=== PATIENT | male | born 1995 | race Caucasian/White ===

== ENCOUNTER 2017-08-03 10:55 | Observation (INO) ==
--- NOTE | 2017-08-03 11:29 | Emergency Department Note ---
Disposition Clinical Impression: Depression Qualifiers: Depression Type: unspecified Qualified Code(s): F32.9 - Major depressive disorder, single episode, unspecified Disposition: Admitted As Inpatient Condition: Good Forms: ED Satisfaction Letter Time of Disposition: 14:10 Psych HPI - General Chief Complaint: ED Psychiatric Symptoms Stated Complaint: SI Time Seen by Provider: 08/03/17 11:13 Source: patient Nursing Notes Reviewed: Yes Vital Signs Reviewed: Yes - History of Present Illness HPI Narrative: Jean Kelsey is a 21 y/o M with a history of feeling depress and SI who presents today feeling very depressed. He states that he usually smokes marijuana when he is feeling depressed. However, he has stopped smoking marijuana for the past 2 days. Today he feels too depress to cope alone and would like to seek help. He denies any SI and HI currently. He admits he has an appointment with Michelle Lux, a psychiatrist, on 08/11/17. He denies any pain and has no other concerns. Pt complaint: feels depressed Duration: getting worse Associated symptoms: Denies: headache, shortness of breath, nausea, vomiting, syncope Traumatic symptoms: denies traumatic injury - Related Data Home Medications Medication Instructions Recorded Confirmed No Known Home Drugs 08/03/17 08/03/17 Allergies Allergy/AdvReac Type Severity Reaction Status Date / Time No Known Allergies Allergy Verified 08/03/17 11:08 Constitutional: Denies: fever, chills, weakness, weight change Eyes: Denies: eye pain, eye discharge, vision change ENT ED: Denies: ear pain, throat pain, dental pain, hearing loss, epistaxis, congestion, dysphagia Cardiovascular: Denies: chest pain, palpitations, dyspnea on exertion, edema, syncope Respiratory: Denies: cough, dyspnea, wheezes, hemoptysis, stridor Gastrointestinal: Denies: abdominal pain, nausea, vomiting, diarrhea, constipation, hematemesis, melena, hematochezia Genitourinary: Denies: urgency, dysuria, frequency, hematuria Musculoskeletal: Denies: back pain, neck pain, arthralgia, myalgia Integumentary: Denies: rash, abrasion, lesions Neurological: Denies: headache, weakness, numbness, paresthesias, confusion, abnormal gait, vertigo Psychiatric: Reports: depression. Denies: anxiety, suicidal thoughts, homicidal thoughts, auditory hallucinations, visual hallucinations Endocrine: Denies: fatigue Hematological/Lymphatic: Denies: easy bleeding, easy bruising Allergic/Immunologic: Denies: facial swelling, urticaria Past Medical History - Past Medical History Medical history: Reports: no medical history Psychiatric history: Reports: anxiety, depression - Social History Smoking Status: Current every day smoker Smokeless Tobacco Status: No Alcohol use: Reports: none, occasionally Drug use: Reports: marijuana, other Physical Exam - General Limitations: no limitations General appearance: alert - Head Head exam: atraumatic, normocephalic, normal inspection - Eye Eye exam: Present: normal appearance, PERRL, EOMI - Expanded Eye Exam Pupils: Left: reactive - ENT ENT exam: normal exam, normal oropharynx, mucous membranes moist - Expanded ENT Exam External ear exam: Present: normal external inspection Mouth exam: Present: normal external inspection Teeth exam: Present: normal inspection Throat exam: Present: normal inspection - Neck Neck exam: Present: normal inspection, full ROM, trachea midline - Chest Chest inspection: Present: normal inspection, symmetric chest wall rise - Respiratory Respiratory exam: Present: normal lung sounds bilaterally - Cardiovascular Cardiovascular exam: Present: regular rate, normal rhythm, normal heart sounds - Abdominal Exam Abdominal exam: Present: soft, Non-Tender. Absent: tenderness, distention, guarding, rebound, rigidity - Extremities Exam Extremities exam: Present: normal inspection, full ROM. Absent: tenderness, pedal edema - Expanded Upper Extremity Exam Shoulder exam: Present: normal inspection, full ROM Arm exam: Present: normal inspection, full ROM Elbow exam: Present: normal inspection, full ROM Forearm/Wrist exam: Present: normal inspection, full ROM Hand exam: Present: normal inspection, full ROM Vascular exam: Normal: capillary refill, radial pulse - Expanded Lower Extremity Exam Hip/Pelvis exam: Present: normal inspection, full ROM Upper leg exam: Present: normal inspection, full ROM Knee exam: Present: normal inspection, full ROM Lower leg exam: Present: normal inspection, full ROM Ankle exam: Present: normal inspection, full ROM Foot/toe exam: Present: normal inspection, full ROM Neurovascular/Tendon exam: Absent: motor deficit, sensory deficit, tendon deficit - Back Exam Back exam: Present: normal inspection, full ROM. Absent: tenderness - Neurological Exam Neurological exam: Present: alert, oriented X3 - Expanded Neurological Exam Patient oriented to: Present: person, place, time Coma Scale Eye Opening: Spontaneous Coma Scale Motor Response: Obeys Commands Coma Scale Verbal Response: Oriented Coma Scale Total: 15 - Psychiatric Psychiatric exam: Present: normal affect, depressed. Absent: agitated, manic, homicidal ideation, suicidal ideation - Skin Skin exam: Present: warm, dry, intact, normal color Course Course Narrative: Jean Kelsey is a 21 y/o M with a history of depression who presents today feeling very depressed. He states that he usually smokes marijuana when he is feeling depressed. However, he has stopped smoking marijuana for the past 2 days. He denies any SI or HI currently. He states that he is doing better now, but he admits he still feel very depressed. Patient is being admitted to Psych services. - Reevaluation(s) Reevaluation #1: Patient states that he is still depress but he denies any SI and HI Time: 14:07 Vital Signs Temperature 98.2 F 08/03/17 11:02 Pulse Rate 109 08/03/17 11:02 Respiratory Rate 18 08/03/17 11:02 Blood Pressure 120/81 08/03/17 11:02 O2 Sat by Pulse Oximetry 97 08/03/17 11:02 Temperature 98.2 F 08/03/17 11:02 Pulse Rate 107 08/03/17 11:34 Respiratory Rate 16 08/03/17 11:34 Blood Pressure 120/79 08/03/17 11:34 O2 Sat by Pulse Oximetry 97 08/03/17 11:34 Oxygen Delivery Oxygen Delivery Room Air Psych - [facility] Narrative Medical decision making narrative: Jean Kelsey is a 21 y/o M with a history of depression who presents today feeling very depressed. He states that he usually smokes marijuana when he is feeling depressed, but he has stopped smoking marijuana for the past 2 days. He denies any SI or HI. Patient has an appointment with a psychiatrist on 08/11/17 , but until then, the patient would like some help today. Patient is being admitted to Psych services today. - Lab Data Result diagrams: 08/03/17 11:35 08/03/17 11:35 Lab Results 08/03/17 08/03/17 08/03/17 Range/Units 11:34 11:34 11:35 WBC 7.8 (4.3-11.1) K/mcL RBC 5.34 (4.19-5.50) M/mcL Hgb 16.1 (12.9-16.9) g/dL Hct 47.7 (37.5-50.1) % MCV 89.3 (83.0-100.0) fL MCH 30.1 (28.0-33.3) pg MCHC 33.8 (31.6-35.5) g/dL RDW 13.3 (11.5-14.5) % Plt Count 334 (140-400) K/mcL MPV 9.7 (9.4-12.4) fL Immature Gran % 0.4 (0-4) % Seg Neutrophils % 69.7 % Lymphocytes % 22.1 % Monocytes % 7.0 % Eosinophils % 0.4 % Basophils % 0.4 % Neutrophils # 5.4 (1.6-8.9) K/mcL Lymphocytes # 1.7 (0.6-4.6) K/mcL Monocytes # 0.5 (0.0-1.3) K/mcL Eosinophils # 0.0 (0.0-0.6) K/mcL Basophils # 0.0 (0.0-0.2) K/mcL Sodium (136-145) mEq/L Potassium (3.5-4.5) mEq/L Chloride (98-109) mEq/L Carbon Dioxide (19-29) mEq/L BUN (8-26) mg/dL Creatinine (0.72-1.25) mg/dL Est GFR ( Amer) (> 60) Est GFR (Non-Af Amer) (> 60) BUN/Creatinine Ratio (6-26) Glucose (70-99) mg/dL Calculated Osmolality (280-300) Calcium (8.6-10.8) mg/dL Urine Color Dark Yellow (Yellow) Urine Clarity Clear (Clear) Urine pH 6.5 (5.0-8.0) pH Units Ur Specific [place] > 1.030 H (1.010-1.025) Urine Protein 30 H (Neg-Trace) mg/dL Urine Glucose (UA) Normal (Normal) mg/dL Urine Ketones Trace H (Negative) mg/dL Urine Blood Negative (Negative) Urine Nitrite Negative (Negative) Urine Bilirubin Small H (Negative) Urine Urobilinogen Normal (Normal) mg/dL Ur Leukocyte Esterase Negative (Negative) Urine Microscopic RBC 0-3 (0-3) per hpf Urine Microscopic WBC 0-3 (0-3) per hpf Ur Squamous Epith Cells Moderate H (None-Few) per lpf Urine Bacteria None Seen (None-Few) per hpf Hyaline Casts None Seen (None-Few) per lpf Salicylates (15-30) mg/dL Urine Opiates Screen Negative (Xoihml=831) ng/mL Acetaminophen (10-30) mcg/mL Ur Barbiturates Screen Negative (Tziceu=494) ng/mL Ur Phencyclidine Scrn Negative (Cutoff=25) ng/mL Ur Amphetamines Screen Negative (Khkvdr=0099) ng/mL U Benzodiazepines Scrn Negative (Ljebmj=044) ng/mL Urine Cocaine Screen Negative (Cutoff= 300) ng/mL U Marijuana (THC) Screen Positive H (Cutoff = 50) ng/mL Ethyl Alcohol (0-10) mg/dL 08/03/17 Range/Units 11:35 WBC (4.3-11.1) K/mcL RBC (4.19-5.50) M/mcL Hgb (12.9-16.9) g/dL Hct (37.5-50.1) % MCV (83.0-100.0) fL MCH (28.0-33.3) pg MCHC (31.6-35.5) g/dL RDW (11.5-14.5) % Plt Count (140-400) K/mcL MPV (9.4-12.4) fL Immature Gran % (0-4) % Seg Neutrophils % % Lymphocytes % % Monocytes % % Eosinophils % % Basophils % % Neutrophils # (1.6-8.9) K/mcL Lymphocytes # (0.6-4.6) K/mcL Monocytes # (0.0-1.3) K/mcL Eosinophils # (0.0-0.6) K/mcL Basophils # (0.0-0.2) K/mcL Sodium 141 (136-145) mEq/L Potassium 3.5 (3.5-4.5) mEq/L Chloride 105 (98-109) mEq/L Carbon Dioxide 26 (19-29) mEq/L BUN 10 (8-26) mg/dL Creatinine 1.15 (0.72-1.25) mg/dL Est GFR ( Amer) > 60 (> 60) Est GFR (Non-Af Amer) > 60 (> 60) BUN/Creatinine Ratio 9 (6-26) Glucose 96 (70-99) mg/dL Calculated Osmolality 291 (280-300) Calcium 10.0 (8.6-10.8) mg/dL Urine Color (Yellow) Urine Clarity (Clear) Urine pH (5.0-8.0) pH Units Ur Specific [place] (1.010-1.025) Urine Protein (Neg-Trace) mg/dL Urine Glucose (UA) (Normal) mg/dL Urine Ketones (Negative) mg/dL Urine Blood (Negative) Urine Nitrite (Negative) Urine Bilirubin (Negative) Urine Urobilinogen (Normal) mg/dL Ur Leukocyte Esterase (Negative) Urine Microscopic RBC (0-3) per hpf Urine Microscopic WBC (0-3) per hpf Ur Squamous Epith Cells (None-Few) per lpf Urine Bacteria (None-Few) per hpf Hyaline Casts (None-Few) per lpf Salicylates < 5.0 L (15-30) mg/dL Urine Opiates Screen (Stxopc=772) ng/mL Acetaminophen < 1.0 L (10-30) mcg/mL Ur Barbiturates Screen (Vpchcn=488) ng/mL Ur Phencyclidine Scrn (Cutoff=25) ng/mL Ur Amphetamines Screen (Grjkwf=6806) ng/mL U Benzodiazepines Scrn (Snqffl=176) ng/mL Urine Cocaine Screen (Cutoff= 300) ng/mL U Marijuana (THC) Screen (Cutoff = 50) ng/mL Ethyl Alcohol < 10 (0-10) mg/dL - EKG Data EKG attestation: Yes I reviewed and interpreted this EKG. EKG shows normal: sinus rhythm Rate: normal Rhythm: NSR [place]/QRS: normal Interpretation: normal EKG Psychiatric Medical Clearance - Medical Clearance Checklist Medical History: No Social History Section defined Current Vitals: Last Vital Signs Temp 98.2 F 08/03/17 11:02 Pulse 107 08/03/17 11:34 Resp 16 08/03/17 11:34 BP 120/79 08/03/17 11:34 Pulse Ox 97 08/03/17 11:34 Psychiatric Lab Panel: Drug Levels and Toxicity 08/03/17 08/03/17 11:34 11:35 Urine Opiates Screen Negative Acetaminophen < 1.0 L Ur Barbiturates Screen Negative Ur Phencyclidine Scrn Negative Ur Amphetamines Screen Negative U Benzodiazepines Scrn Negative Urine Cocaine Screen Negative U Marijuana (THC) Screen Positive H Ethyl Alcohol < 10 Abnormal Labs: Abnormal lab results Ur Specific [place] > 1.030 (1.010-1.025) H 08/03/17 11:34 Urine Protein 30 mg/dL (Neg-Trace) H 08/03/17 11:34 Urine Ketones Trace mg/dL (Negative) H 08/03/17 11:34 Urine Bilirubin Small (Negative) H 08/03/17 11:34 Ur Squamous Epith Cells Moderate per lpf (None-Few) H 08/03/17 11:34 Salicylates < 5.0 mg/dL (15-30) L 08/03/17 11:35 Acetaminophen < 1.0 mcg/mL (10-30) L 08/03/17 11:35 U Marijuana (THC) Screen Positive ng/mL (Cutoff = 50) H 08/03/17 11:34 Statement of Medical Clearance: I have evaluated the patient, reviewed diagnostic information, and certify that the patient's medical condition is sufficiently stable that transfer to the psychiatric unit does not pose a significant risk of deterioration.
[2017-08-03 11:41] LABS: Basophils % 0.4 %; Eosinophils % 0.4 %; Hematocrit 47.7 % (37.5-50.1); Hemoglobin 16.1 g/dL (12.9-16.9); Immature Granulocytes % 0.4 % (0-4); Lymphocytes # 1.7 K/mcL (0.6-4.6); Lymphocytes % 22.1 %; Mean Corpuscular HGB Conc 33.8 g/dL (31.6-35.5); Mean Corpuscular Hemoglobin 30.1 pg (28.0-33.3); Mean Corpuscular Volume 89.3 fL (83.0-100.0); Mean Platelet Volume 9.7 fL (9.4-12.4); Monocytes # 0.5 K/mcL (0.0-1.3); Neutrophils # 5.4 K/mcL (1.6-8.9); Platelet Count 334 K/mcL (140-400); Red Blood Count 5.34 M/mcL (4.19-5.50); Red Cell Distribution Width 13.3 % (11.5-14.5); Segmented Neutrophils % 69.7 %
[2017-08-03 11:56] LABS: Bilirubin,Urine Small (Negative); Blood,Urine Negative (Negative); Clarity,Urine Clear (Clear); Color,Urine Dark Yellow (Yellow); Glucose,Urine (UA) Normal (Normal); Ketones,Urine Trace mg/dL (Negative); Leukocyte Esterase,Urine Negative (Negative); Nitrite,Urine Negative (Negative); PH,Urine 6.5 pH Units (5.0-8.0); Protein,Urine 30 mg/dL (Neg-Trace); Specific Gravity,Urine > 1.030 (1.010-1.025); Urobilinogen,Urine Normal (Normal)
[2017-08-03 11:59] LABS: BUN/Creatinine Ratio 9 (6-26); Blood Urea Nitrogen 10 mg/dL (8-26); Carbon Dioxide 26 mEq/L (19-29); Chloride 105 mEq/L (98-109); Glucose 96 mg/dL (70-99); Osmolality,Calculated 291 (280-300); Potassium 3.5 mEq/L (3.5-4.5); Sodium 141 mEq/L (136-145); eGFR For African Americans > 60 (> 60); eGFR For Non-African Americans > 60 (> 60)
[2017-08-03 11:59] LABS: Bacteria,Urine None Seen per hpf (None-Few); Hyaline Casts,Urine None Seen per lpf (None-Few); RBC,Urine 0-3 per hpf (0-3); Squamous Epithelial Cell,Urine Moderate per lpf (None-Few); WBC,Urine 0-3 per hpf (0-3)
[2017-08-03 12:00] LABS: Acetaminophen < 1.0 mcg/mL (10-30); Ethanol < 10 mg/dL (0-10); Salicylate < 5.0 mg/dL (15-30)
[2017-08-03 12:05] LABS: Amphetamine Screen,Urine Negative ng/mL (Cutoff=1000); Barbiturate Screen,Urine Negative ng/mL (Cutoff=200); Benzodiazepines Screen,Urine Negative ng/mL (Cutoff=200); Cannabinoid Screen,Urine Positive ng/mL (Cutoff = 50); Cocaine Screen,Urine Negative ng/mL (Cutoff= 300); Opiate Screen,Urine Negative ng/mL (Cutoff=300); Phencyclidine Screen,Urine Negative ng/mL (Cutoff=25)
--- NOTE | 2017-08-03 12:22 | Emergency Department Note ---
START Narrative - START START: I examined this patient and my medical decision-making was reviewed with the Resident Physician. I agree with the documented findings, disposition and treatment plan as described except to the extent set forth below. 21-year-old male presents emergency room for depression and suicidal thoughts. Patient stopped smoking marijuana 2 days ago. States usually smokes to help him cope with his depression. States he is feeling hopeless. Once help. Denies any current plan to me on suicide. No homicidal thoughts.
[2017-08-03] MEDS ORDERED: *HR* LORazepam 1 MG TABLET PO PRN ×2 (14:51→14:53)
[2017-08-03] MEDS ORDERED: Haloperidol Lactate 5 MG/ML VIAL IM PRN (14:51)
[2017-08-03] MEDS ORDERED: hydrOXYzine pamoate 25 MG CAPSULE PO PRN (14:51)
[2017-08-03] MEDS ORDERED: *HR* LORazepam 2 MG/ML VIAL IM PRN (14:51)
[2017-08-03] MEDS ORDERED: Mag Hydrox/Al Hydrox/Simeth 30 ML UDC PO PRN (14:51)
[2017-08-03] MEDS ORDERED: Acetaminophen 325 MG TABLET PO PRN (14:51)
[2017-08-03] MEDS: Nicotine 21 MG PATCH.TD24 TD SCH (15:33)
[2017-08-03] MEDS ORDERED: traZODone 50 MG TABLET PO PRN (21:00)
[2017-08-03] MEDS ORDERED: MOM Conc 10 ML UD.LIQ PO PRN (21:00)
--- NOTE | 2017-08-04 07:59 | Electrocardiograph Report ---
[address] [place] [address] Test Date: 2017-08-03 Pat Name: Jean Kelsey Department: 103 Room: 1A42 Gender: M Cook Pie: : 1995 Requested By: Piter Ceballos Order Number: [id number] Reading MD: Reid Sauceda MD Measurements Intervals [place] Rate: 94 P: 81 SD: 134 QRS: 76 QRSD: 104 T: 50 QT: 335 QTc: 387 Interpretive Statements SINUS RHYTHM WITH SINUS ARRHYTHMIA POSSIBLE RV CONDUCTION DELAY Electronically Signed On 08-04-2017 7:58:07 EDT by Reid Sauceda MD
[2017-08-04] MEDS: Nicotine 21 MG PATCH.TD24 TD SCH (09:14)
[2017-08-04 09:26] VITALS: BP 123/83
--- NOTE | 2017-08-04 10:59 | Discharge Summary ---
Date of Encounter: 08/04/17 Time of Encounter: 10:30 History of Present Illness Chief complaint: Suicidal Admitted From: Emergency Dept History of Present Illness: Mr. Kelsey is a 21 year old male admitted from the admissions department for depression and suicidal ideation and increase in anxiety. 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 Patient had no previous psychiatric treatment and recently has been smoking marijuana more frequently and he was unhappy about its his dependence on marijuana and needed medication. Past Med Surg Social Fam HX - Past Medical History Medical history: no medical history - Past Psychiatric History Psychiatric history: Reports: no psych history - Past Surgical History Surgical History: no surgical history - Social History Smoking Status: Current every day smoker Smokeless Tobacco Status: Yes (chew) Alcohol use: rarely Drug use: marijuana Medications - Discharge Medications Prescriptions: hydrOXYzine pamoate [HydrOXYzine Pamoate] 25 mg PO TID PRN #60 capsule PRN Reason: Anxiety Paroxetine [Paxil] 20 mg PO DAILY #30 tablet traZODone [TraZODone] 50 mg PO HS PRN #30 tablet PRN Reason: Insomnia Paroxetine [Paxil] 20 mg PO DAILY #30 tablet 08/04/17 [Rx] hydrOXYzine pamoate [HydrOXYzine Pamoate] 25 mg PO TID PRN #60 capsule 08/04/17 [Rx] traZODone [TraZODone] 50 mg PO HS PRN #30 tablet 08/04/17 [Rx] 3 Allergy/AdvReac Type Severity Reaction Status Date / Time No Known Allergies Allergy Verified 08/03/17 11:08 Review of Systems Psychiatric: Reports: depression, anxiety, abnormal sleep pattern, suicidal ideation, irritability Mental Status Exam - Mental Status Exam Patient orientation: Yes Person, Yes Time, Yes Place Level of alertness: Alert Patient appearance: Appropriate, Unkempt Behavior: calm, cooperative, guarded Psychomotor activity: Normal Eye contact: Maintains Eye Contact Mood description: Euthymic/stable, Anxious Affect description: congruent with mood, full range Speech pattern: Normal rate, Normal rhythm, Normal tone Speech Volume: Normal Thought process: Linear, Goal Oriented Thought Content: No Suicidal ideation, No Homicidal ideation, No Overt delusions Perceptual Disturbances: No Auditory hallucinations, No Visual hallucinations Judgment: Limited Insight: Partial Results - Vital Signs Vital signs: Temp Pulse Resp BP Pulse Ox 98.6 F 79 16 123/83 97 08/04/17 09:25 08/04/17 09:25 08/04/17 09:25 08/04/17 09:25 08/03/17 11:34 - Labs Labs: Laboratory Last Values WBC 7.8 K/mcL (4.3-11.1) 08/03/17 11:35 RBC 5.34 M/mcL (4.19-5.50) 08/03/17 11:35 Hgb 16.1 g/dL (12.9-16.9) 08/03/17 11:35 Hct 47.7 % (37.5-50.1) 08/03/17 11:35 MCV 89.3 fL (83.0-100.0) 08/03/17 11:35 MCH 30.1 pg (28.0-33.3) 08/03/17 11:35 MCHC 33.8 g/dL (31.6-35.5) 08/03/17 11:35 RDW 13.3 % (11.5-14.5) 08/03/17 11:35 Plt Count 334 K/mcL (140-400) 08/03/17 11:35 MPV 9.7 fL (9.4-12.4) 08/03/17 11:35 Immature Gran % 0.4 % (0-4) 08/03/17 11:35 Seg Neutrophils % 69.7 % 08/03/17 11:35 Lymphocytes % 22.1 % 08/03/17 11:35 Monocytes % 7.0 % 08/03/17 11:35 Eosinophils % 0.4 % 08/03/17 11:35 Basophils % 0.4 % 08/03/17 11:35 Neutrophils # 5.4 K/mcL (1.6-8.9) 08/03/17 11:35 Lymphocytes # 1.7 K/mcL (0.6-4.6) 08/03/17 11:35 Monocytes # 0.5 K/mcL (0.0-1.3) 08/03/17 11:35 Eosinophils # 0.0 K/mcL (0.0-0.6) 08/03/17 11:35 Basophils # 0.0 K/mcL (0.0-0.2) 08/03/17 11:35 Sodium 141 mEq/L (136-145) 08/03/17 11:35 Potassium 3.5 mEq/L (3.5-4.5) 08/03/17 11:35 Chloride 105 mEq/L (98-109) 08/03/17 11:35 Carbon Dioxide 26 mEq/L (19-29) 08/03/17 11:35 BUN 10 mg/dL (8-26) 08/03/17 11:35 Creatinine 1.15 mg/dL (0.72-1.25) 08/03/17 11:35 Est GFR ( Amer) > 60 (> 60) 08/03/17 11:35 Est GFR (Non-Af Amer) > 60 (> 60) 08/03/17 11:35 BUN/Creatinine Ratio 9 (6-26) 08/03/17 11:35 Glucose 96 mg/dL (70-99) 08/03/17 11:35 Calculated Osmolality 291 (280-300) 08/03/17 11:35 Calcium 10.0 mg/dL (8.6-10.8) 08/03/17 11:35 Urine Color Dark Yellow (Yellow) 08/03/17 11:34 Urine Clarity Clear (Clear) 08/03/17 11:34 Urine pH 6.5 pH Units (5.0-8.0) 08/03/17 11:34 Ur Specific [place] > 1.030 (1.010-1.025) H 08/03/17 11:34 Urine Protein 30 mg/dL (Neg-Trace) H 08/03/17 11:34 Urine Glucose (UA) Normal mg/dL (Normal) 08/03/17 11:34 Urine Ketones Trace mg/dL (Negative) H 08/03/17 11:34 Urine Blood Negative (Negative) 08/03/17 11:34 Urine Nitrite Negative (Negative) 08/03/17 11:34 Urine Bilirubin Small (Negative) H 08/03/17 11:34 Urine Urobilinogen Normal mg/dL (Normal) 08/03/17 11:34 Ur Leukocyte Esterase Negative (Negative) 08/03/17 11:34 Urine Microscopic RBC 0-3 per hpf (0-3) 08/03/17 11:34 Urine Microscopic WBC 0-3 per hpf (0-3) 08/03/17 11:34 Ur Squamous Epith Cells Moderate per lpf (None-Few) H 08/03/17 11:34 Urine Bacteria None Seen per hpf (None-Few) 08/03/17 11:34 Hyaline Casts None Seen per lpf (None-Few) 08/03/17 11:34 Salicylates < 5.0 mg/dL (15-30) L 08/03/17 11:35 Urine Opiates Screen Negative ng/mL (Rpokgg=589) 08/03/17 11:34 Acetaminophen < 1.0 mcg/mL (10-30) L 08/03/17 11:35 Ur Barbiturates Screen Negative ng/mL (Dlxihu=391) 08/03/17 11:34 Ur Phencyclidine Scrn Negative ng/mL (Cutoff=25) 08/03/17 11:34 Ur Amphetamines Screen Negative ng/mL (Axxlqd=1772) 08/03/17 11:34 U Benzodiazepines Scrn Negative ng/mL (Ymmrlq=492) 08/03/17 11:34 Urine Cocaine Screen Negative ng/mL (Cutoff= 300) 08/03/17 11:34 U Marijuana (THC) Screen Positive ng/mL (Cutoff = 50) H 08/03/17 11:34 Ethyl Alcohol < 10 mg/dL (0-10) 08/03/17 11:35 Diagnosis - Discharge Diagnosis (1) Depression Status: Acute Qualifiers: Depression Type: unspecified Qualified Code(s): F32.9 - Major depressive disorder, single episode, unspecified (2) Tetrahydrocannabinol (THC) use disorder, mild, abuse Status: Acute Assessment and Plan - Patient/Caregiver Discharge Instructions Activity: resume usual activities as tolerated Diet: regular diet - Follow up Plan Follow up with: NONE,PCP [Primary Care Provider] - Functional capacity at discharge: independent ambulation Overall status at discharge: Stable Disposition: Home, Self-Care Provider Date of admission: 08/03/17 14:28 Primary care physician: PCP LEE Discharging clinician: Kareem Arreola Hospital Course Hospital course: Mr. Kelsey is a 21 year old male admitted from the emergency department on observation status for evaluation of depression and suicidal ideation. Please see Hpi On the units patient was evaluated and started on medication including Paxil 20 mg and Ativan 1 mg when necessary he was able to sleep adequately he was cooperative compliant with his medication and he reports that he better and denied having any suicidal intention he was considering his follow-up appointments that is already scheduled and he will participate and therapy as planned. On discharge he was medically stable tolerated the medication denying side effects denied any suicidal ideation and motivated to continue his outpatient treatment and therapy. heater worker reviewed with the patient his discharge plans. - Time Spent with Patient Total time spent providing and/or coordinating discharge services: Greater than 30 minutes Procedures - Procedures Procedures: Medication Management, Crisis Stabilization, Supportive Therapy, Group Therapy, Psychoeducational Therapy Quality - Multiple Antipsychotics Patient discharged on 2 or more antipsychotic medications: No
== END 2017-08-04 14:35 | disposition home or self-care (01) ==
LOC: EMEROO 10:55 → 1ANU 10:55
PROVIDERS: ADMIT Psychiatry & Neurology Psychiatry; ATTEND Psychiatry & Neurology Psychiatry